=== PATIENT | male | born 1965 | race African-American/Black ===

== ENCOUNTER → 2016-08-13 | Outpatient (CLI) | payer MEDICARE, OTHER ==
[~2016-08-13] MED LIST: ALBUTEROL17 GM INH; BACTRIM DS TABL1 TA1 PO; COUMADIN5 MG PO; GLUCOPHAGE XR500 MG PO; IBUPROFEN; IRON TABLETS1 TAB PO; KEFLEX500 MG PO; LEVAQUIN750 M1 PO; LISINOPRIL PO; LORTAB 5/500 TA1 TA1 PO; LOVENOX150 MG/ML SQ; NICOTINE TRANSD14 MG EXT; NORCO 5/325 TAB1 TAB PO; NOVOLOG; NYSTATIN5 ML PO; VICODIN 5/1 TAB 5/50 PO; VYTORIN PO; ZITHROMAX PO
--- NOTE | ~2016-08-13 | US136 ---
[facility] A Service of [facility] & [facility] RADIOLOGY TEXT RESULTS PATIENT: GM CARDOZA LOCATION: [facility] : 69 UNIT #: [id number] AGE: [address]: Eddy Colby MD SEX: M ORDER DR: [id number] [facility] [address] [place], [place] [address] [id number] O MR#: [id number] Acc #: [id number] NAME: GM CARDOZA : 1965 SEX: M STUDY DATE/TIME: 08/13/2016 9:45 UNIT: [facility] ROOM: STUDY DESCRIPTION: U/L [facility] Art Study [facility] [place] Attending Physician: Eddy Colby M.D. Referring Physician: Eddy Colby M.D. Ordering Physician: Eddy Colby M.D. Primary Care Physician: Eddy Colby M.D. MEDICAL IMAGING REPORT This report is preliminary unless electronic signature is present EXAM Bilateral lower extremity ankle-brachial indices, 08/13/2016. CLINICAL HISTORY Claudication both lower extremities for 2 years. FINDINGS Brachial pressure is 125 mmHg on the right, ankle pressure is 136 mmHg in the right posterior tibial and 133 in the left dorsalis pedis yielding ankle brachial indices of 1.09 on the right and 1.06 on the left. Digital pressures are normal in both feet as well. IMPRESSION Normal ankle-brachial indices of 1.09 on the right and 1.06 on the left. Dictated by... Neil Garcia M.D. THIS IS AN ELECTRONICALLY VERIFIED REPORT Neil Garcia M.D. at 08/17/2016 10:34 AM MARY/sivakumar TD: 08/14/2016 12:43 JOB #: [id number] MEDICAL IMAGING REPORT Page 1 of 1 COPY
== END | disposition home or self-care (01) ==
LOC: CNIV 09:14
DX: E11.9 Type 2 diabetes mellitus without complications (principal); I10 Essential (primary) hypertension; I73.9 Peripheral vascular disease, unspecified; M54.5 Low back pain
CPT/HCPCS: 93922

== ENCOUNTER → 2016-10-22 | Outpatient (CLI) | payer MEDICARE, OTHER ==
--- NOTE | ~2016-10-22 | XA30 ---
[facility] A Service of [facility] & [facility] RADIOLOGY TEXT RESULTS PATIENT: GM CARDOZA [facility] [birth year] UNIT #: [id number] AGE: [address]: David Gomez MD SEX: M ORDER DR: [id number] [facility] [address] [place], [place] [address] [id number] O MR#: [id number] Acc #: [id number] NAME: GM CARDOZA : 1965 SEX: M STUDY DATE/TIME: 10/22/2016 12:22 UNIT: [facility] ROOM: STUDY DESCRIPTION: XA Arthrocentesis Major Joint Attending Physician: David Gomez M.D. Referring Physician: David Gomez M.D. Ordering Physician: David Gomez M.D. Primary Care Physician: Eddy Colby M.D. MEDICAL IMAGING REPORT This report is preliminary unless electronic signature is present EXAM Left hip arthrocentesis HISTORY Left hip arthritis with chronic pain. TECHNIQUE The procedure was explained to the patient including risks, benefits and complications. Informed consent was obtained and a formal time-out procedure was utilized. Using sterile technique and following local anesthesia with 1% Xylocaine a 22-gauge spinal needle was placed into the left hip joint under fluoroscopic guidance. One spot film was obtained. Total fluoroscopy time 0.2 minutes with a dose of 29 mGy. Intraarticular placement of the needle was confirmed with injection of 2 mL of Isovue. The joint was then injected with 80 mg of Depo-Medrol and 3 mL of 0.5% bupivacaine. The patient tolerated the procedure well. IMPRESSION Technically successful injection of the left hip joint with Depo-Medrol and bupivacaine under fluoroscopic guidance. Dictated by... Rio Bradshaw M.D. THIS IS AN ELECTRONICALLY VERIFIED REPORT Rio Bradshaw M.D. at 10/22/2016 4:33 PM Shon TD: 10/22/2016 14:24 JOB #: [id number] MEDICAL IMAGING REPORT Page 1 of 1 COPY
== END | disposition home or self-care (01) ==
LOC: CIVR 12:12
PROC: 3E0U3BZ Introduction of Anesthetic Agent into Joints, Percutaneous Approach (ICD-10-PCS; principal; 2016-10-22)
DX: M16.12 Unilateral primary osteoarthritis, left hip (principal)
CPT/HCPCS: 77002; J1030; Q9966